=== PATIENT | female | born 1970 | race Caucasian/White ===

== ENCOUNTER → 2020-01-08 10:40 | Outpatient (CLI) | payer OTHER, SELFPAY ==
--- NOTE | ~2020-01-08 | MM_ITS ---
EXAMINATION: MM screening [facility] BI w hope HISTORY: Screening TECHNIQUE: Craniocaudal and mediolateral oblique 3-D tomosynthesis images were obtained and synthetic 2-D images were generated. CAD analysis was submitted and interpreted. COMPARISON: Comparison to multiple prior studies sequentially, with oldest reviewed study dated 08/02. BREAST PARENCHYMAL COMPOSITION: The breasts are heterogeneously dense, which may obscure small masses . FINDINGS: There is no evidence of suspicious mass, calcification, or architectural distortion to sugg est malignancy in either breast. There has been no suspicious interval change. IMPRESSION: 1. No mammographic evidence of malignancy. 2. Recommend routine screening mammography in one year. BI-RADS Category 1: Negative Reviewed, dictated and finalized at location A.
== END ==
PROVIDERS: Visit Provider Obstetrics & Gynecology
DX: Z12.31 Encounter for screening mammogram for malignant neoplasm of breast (principal)
CPT/HCPCS: 77063; 77067

== ENCOUNTER → 2020-10-24 10:12 | Outpatient (CLI) | payer OTHER, SELFPAY ==
--- NOTE | ~2020-10-24 | US_ITS ---
EXAMINATION: US abdomen complete DATE: 10/24/2020 10:55 INDICATION: Epigastric abdominal pain. TECHNIQUE: Multiple grayscale and Doppler ultrasound images of the abdomen were obtained. COMPARISON: None FINDINGS: The visualized portions of the head and body of the pancreas are normal. Abdominal aorta is normal in caliber. Inferior vena cava is normal. The liver is normal without focal lesion. No liver surface nodularity. There is normal flow in main portal vein. The gallbladder is normal in size and c ontains gallstones. No gallbladder wall thickening or sonographic Gonzalez sign. The common duct is nor mal and measures 3 mm. The kidneys are normal in size. There is mild splenomegaly measuring 13.4 cm. IMPRESSION: 1. Cholelithiasis. No evidence of acute cholecystitis. 2. Mild splenomegaly. Reviewed, dictated and finalized at location A.
== END ==
PROVIDERS: PCP Family Medicine; Visit Provider Nurse Practitioner Family
DX: R16.1 Splenomegaly, not elsewhere classified (principal); K80.20 Calculus of gallbladder without cholecystitis without obstruction
CPT/HCPCS: 76700

== ENCOUNTER 2020-11-14 09:35 | Outpatient (CLI) | payer OTHER, SELFPAY ==
--- NOTE | ~2020-11-14 | NM_ITS ---
EXAMINATION: NM hepatobiliary wo pharm DATE: 11/14/2020 13:50 INDICATION: Upper abdominal pain, unspecified. COMPARISON: Ultrasound 10/24/2020 TECHNIQUE: 4.9 mCi Tc-99m mebrofenin (Choletec) was administered intravenously. Scintigraphic images of the abdomen were obtained for one hour. Delayed images were obtained at 4 hours. FINDINGS: There is normal clearance of radiotracer from the blood pool. There is homogeneous tracer u ptake by the liver. Activity progresses to the bowel and gallbladder. IMPRESSION: 1. Normal hepatobiliary scintigraphy. Reviewed, dictated and finalized at location A.
== END 2020-11-14 09:36 | disposition home or self-care (01) ==
LOC: ANHIMG 09:38
PROVIDERS: PCP Family Medicine; Visit Provider Nurse Practitioner Family
DX: R10.10 Upper abdominal pain, unspecified (principal)
CPT/HCPCS: 78226; A9537

== ENCOUNTER → 2021-01-09 10:28 | Outpatient (CLI) | payer OTHER, SELFPAY ==
--- NOTE | ~2021-01-09 | MM_ITS ---
EXAMINATION: MM screening [facility] BI w hope HISTORY: Screening mammogram TECHNIQUE: Craniocaudal and mediolateral oblique 3-D tomosynthesis images were obtained and synthetic 2-D images were generated. CAD analysis was submitted and interpreted. COMPARISON: No prior mammogram is available for comparison at this institution. BREAST PARENCHYMAL COMPOSITION: The breasts are heterogeneously dense, which may obscure small masses . FINDINGS: There is no evidence of suspicious mass, calcification, or architectural distortion to sugg est malignancy in either breast. There has been no suspicious interval change. IMPRESSION: 1. No mammographic evidence of malignancy. 2. Recommend routine screening mammography in one year. BI-RADS Category 1: Negative Reviewed, dictated and finalized at location A.
== END ==
PROVIDERS: Visit Provider Obstetrics & Gynecology
DX: Z12.31 Encounter for screening mammogram for malignant neoplasm of breast (principal)
CPT/HCPCS: 77063; 77067

== ENCOUNTER → 2022-01-12 14:43 | Outpatient (CLI) | payer BC, SELFPAY ==
--- NOTE | ~2022-01-12 | MM_ITS ---
EXAMINATION: MM screening [facility] BI w hope HISTORY: Screening TECHNIQUE: Craniocaudal and mediolateral oblique 3-D tomosynthesis images were obtained and synthetic 2-D images were generated. CAD analysis was submitted and interpreted. COMPARISON: Comparison to multiple prior studies sequentially, with oldest reviewed study dated 10/18. BREAST PARENCHYMAL COMPOSITION: The breasts are heterogeneously dense, which may obscure small masses . FINDINGS: There is no evidence of suspicious mass, calcification, or architectural distortion to sugg est malignancy in either breast. There has been no suspicious interval change. IMPRESSION: 1. No mammographic evidence of malignancy. 2. Recommend routine screening mammography in one year. BI-RADS Category 1: Negative Reviewed, dictated and finalized at location A.
== END ==
PROVIDERS: PCP Family Medicine; Visit Provider Obstetrics & Gynecology
DX: Z12.31 Encounter for screening mammogram for malignant neoplasm of breast (principal)
CPT/HCPCS: 77063; 77067

== ENCOUNTER 2023-04-05 13:55 | Outpatient (CLI) | payer BC, SELFPAY ==
--- NOTE | ~2023-04-05 | MM_ITS ---
EXAMINATION: MM screening [facility] BI w hope HISTORY: Screening mammogram TECHNIQUE: Craniocaudal and mediolateral oblique 3-D tomosynthesis images were obtained and synthetic 2-D images were generated. CAD analysis was submitted and interpreted. COMPARISON: 01/12/2002, 01/09/2021, 01/08/2020 BREAST PARENCHYMAL COMPOSITION: The breasts are heterogeneously dense, which may obscure small masses . FINDINGS: No suspicious mass, calcification, or architectural distortion are identified in either gabbi ast to suggest malignancy. There has been no suspicious interval change. IMPRESSION: 1. No mammographic evidence of malignancy. 2. Recommend routine screening mammography in one year. BI-RADS Category 1: Negative Reviewed, dictated and finalized at location A. 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
== END 2023-04-05 13:56 | disposition home or self-care (01) ==
LOC: ANHIMG 13:57
PROVIDERS: PCP Family Medicine; Visit Provider Obstetrics & Gynecology
DX: Z12.31 Encounter for screening mammogram for malignant neoplasm of breast (principal)
CPT/HCPCS: 77063; 77067

== ENCOUNTER 2024-05-13 14:21 | Outpatient (CLI) | payer OTHER, SELFPAY ==
--- NOTE | ~2024-05-13 | MM_ITS ---
EXAMINATION: MM screening bonnie BI w hope HISTORY: Screening TECHNIQUE: Craniocaudal and mediolateral oblique 3-D tomosynthesis images were obtained and synthetic 2-D images were generated. CAD analysis was submitted and interpreted. COMPARISON: Comparison to multiple prior studies sequentially, with oldest reviewed study dated 12/05. BREAST PARENCHYMAL COMPOSITION: Dense: The breasts are heterogeneously dense, which may obscure small masses FINDINGS: There is no evidence of suspicious mass, calcification, or architectural distortion to sugg est malignancy in either breast. There has been no suspicious interval change. IMPRESSION: 1. No mammographic evidence of malignancy. 2. Recommend routine screening mammography in one year. BI-RADS Category 1: Negative Reviewed, dictated and finalized at location B. HER HEARING IMPAIRED
--- OUTSIDE RECORDS SUMMARY | 2024-05-13 14:24 | XMS_ITS | Clinical Summary ---
Author Organization [employer] [facility] Address [address] Attn: Epic Prelude ADT [place] [address] Care Team Providers Care Exhaust Worker Name Role Phone Unavailable Primary Care Provider Unavailabl e Medications levocetirizine (XYZAL) 5 mg tablet TAKE ONE TABLET BY MOUTH ONCE DAILY 30 Tablet 9 06/12/2021 Active Social History Tobacco Use Types Packs/Day Years Used Date Smoking Tobacco: Never Assessed Comments Unknown Sex and Gender Information Value Date Recorded Sex Assigned at Not on file Legal Sex Female 3:27 PM CDT Gender Identity Not on file Sexual Orientation Not on file Plan of Treatment Health Maintenance Due Date Last Done Comments DTAP/TDAP/TD VACCINES (1 - Tdap) 1990 HEPATITIS B VACCINES (1 of 3 - 19+ 3-dose series) 1990 CERVICAL CANCER SCREENING 2001 BREAST CANCER SCREENING 2011 COLORECTAL SCREENING 02/09/2016 Colorectal Cancer Screening 02/09/2016 FIT-DNA Q 3 years 02/09/2016 FIT/FOBT Q 1 year 02/09/2016 Flex Sig/CT Colonography Q 5 years 02/09/2016 ZOSTER VACCINE (1 of 2) 2021 INFLUENZA VACCINE (#1) 2023 PNEUMOCOCCAL VACCINE 0-64 YEARS Aged Out No longer eligible based on patient's age to complete this topic Insurance RX [employer] Commercial RX [employer] (INTERNAL) [facility]
--- OUTSIDE RECORDS SUMMARY | 2024-05-13 14:24 | XMS_ITS | Referral Summary ---
Author Organization [facility] Address [address] [place] [address] Care Team Providers Care Filer Finish Name Role Phone Dave Goncalves MD Primary Care Provider [phone] Source Comments [facility],non-owned Affiliates and Associated Physician Practices is amultiple site organization consisting of ambulatory clinics and hospital sitesin [place], [place], [place] and [place]. This disclosure is being madepursuant to the Care Everywhere program and may not contain all information available regarding this patient. Last updated 17.[facility] C-Note Allergies Active Allergy Reactions Criticality Noted Date Comments Aspirin Urticaria Medium 09/03/2022 Topical salicylic acid Oral ASA Tolerates with no reaction Amoxicillin Rash Medium 09/03/2022 Medications * Be aware that medications may not be up to date on this document. Alwaysverify current medications with the patient. Medication Sig Dispensed Refills Start Date End Date Status Restasis 0.05 % ophthalmic suspension Instill 1 (one) drop into both eyes 2 times daily 08/29/2022 Active thyroid (Westhroid) 130 MG tablet Take 1 (one) tablet by mouth daily before breakfast Active ESTRADIOL PO Take 2.25 mg by mouth every morning Active progesterone 300 mg ERT 300 mg tablet Take 1 (one) tablet by mouth at bedtime Takes both total of 500mg nightly Active progesterone 100 mg 100 mg tablet Take 2 (two) tablets by mouth at bedtime Active testosterone 0.5% in DERMABASE OINT Apply to affected area once daily Active melatonin 10 MG capsule Take 1 (one) capsule by mouth at bedtime Active spironolactone (Aldactone) 25 MG tablet Take 1 (one) tablet by mouth once daily Active levocetirizine (Xyzal) 5 MG tablet Take 1 (one) tablet by mouth once daily Active loratadine (Claritin) 10 MG tablet Take 1 (one) tablet by mouth once daily Active Multiple Vitamins-Minerals (ONE-A-DAY WOMENS 50+ ADVANTAGE PO) Take 2 tablets by mouth once daily Active Vitamin D3 (Cholecalciferol) 50 MCG (2000 UT) capsule Take 1 (one) capsule by mouth once daily Active Multiple Vitamins-Minerals (Eye Vitamins) CAPS Take 2 (two) capsules by mouth every morning Active bifantis (Align) capsule Take 1 (one) capsule by mouth once daily Active Aczone 7.5 % gel 12/31/2022 Active ibuprofen (Motrin) 600 MG tablet Take 1 (one) tablet by mouth every 6 hours as needed for Pain 60 tablet 02/12/2023 Active docusate sodium (Colace) 100 MG capsule Take 1 (one) capsule by mouth once daily 60 capsule 02/12/2023 Active Active Problems No known active problems Social History Tobacco Use Types Packs/Day Years Used Date Smoking Tobacco: Never Passive Smoke Exposure: Past Smokeless Tobacco: Never Tobacco Cessation:Counseling Given: Not Answered Alcohol Use Standard Drinks/Week Comments Yes 3 (1 standard drink = 0.6 oz pur e alcohol) PHQ-2 Answer Date Recorded Patient Health Questionnaire-2 Score 0 03/25/2023 Sex and Gender Information Value Date Recorded Sex Assigned at Not on file Gender Identity Not on file Sexual Orientation Not on file Last Filed Vital Signs Vital Sign Reading Time Taken Comments Blood Pressure 130/88 04/01/2023 11:07 AM DATA SPECIALIST Pulse 76 02/12/2023 11:11 AM DATA SPECIALIST Temperature 36.3 C (97.3 F) 04/01/2023 11:07 AM DATA SPECIALIST Respiratory Rate 16 02/12/2023 10:23 AM DATA SPECIALIST Oxygen Saturation 100% 02/12/2023 11:11 AM DATA SPECIALIST Inhaled Oxygen Concentration - - Weight 65.1 kg (143 lb 9.6 oz) 04/01/2023 11:07 AM DATA SPECIALIST Height 172.8 cm (5' 8.03 ) 04/01/2023 11:07 AM C Body Mass Index 21.81 04/01/2023 11:07 AM DATA SPECIALIST Plan of Treatment Not on file Medical Devices Implanted Type Area Rn Radiation Device Identifier Shelf Expiration Date Model / Serial / Lot Advantage Blue Implanted:Qty: 1 on 02/12/2023 by Radha George MD at [facility] [id number] 09/15/2025 [id number] / / [id number] Care Teams Filer Finish Relationship Specialty Start Date End Date Dave Goncalves MD [address] [place] [id number] PCP - General Family Medicine 09/03/22
--- OUTSIDE RECORDS SUMMARY | 2024-05-13 14:24 | XMS_ITS | Clinical Summary ---
Author Organization [facility] Address [address] [place] [address] Care Team Providers Care Stick Welder Name Role Phone Dave Goncalves MD Primary Care Provider [phone] Source Comments [facility],non-owned Affiliates and Associated Physician Practices is amultiple site organization consisting of ambulatory clinics and hospital sitesin [place], [place], [place] and [place]. This disclosure is being madepursuant to the Care Everywhere program and may not contain all information available regarding this patient. Last updated 17.[facility] Allergies Active Allergy Reactions Criticality Noted Date [...] daily Active Vitamin D3 (Cholecalciferol) 50 MCG (1999 UT) capsule Take 1 (one) capsule by [...] Active Active Problems No known active problems Family History Medical History Relation Name Comments Cancer - Bladder Father Diabetes - Type 2 Mother Relation Name Status Comments Father Mother Social History Tobacco Use Types Packs/Day Years [...] Comments Blood Pressure 130/88 04/01/2023 11:07 AM SYSTEM SAFETY ENGINEER Pulse 76 02/12/2023 11:11 AM SYSTEM SAFETY ENGINEER Temperature 36.3 C (97.3 F) 04/01/2023 11:07 AM SYSTEM SAFETY ENGINEER Respiratory Rate 16 02/12/2023 10:23 AM SYSTEM SAFETY ENGINEER Oxygen Saturation 100% 02/12/2023 11:11 AM SYSTEM SAFETY ENGINEER Inhaled Oxygen Concentration - - Weight 65.1 kg (143 lb 9.6 oz) 04/01/2023 11:07 AM SYSTEM SAFETY ENGINEER Height 172.8 cm (5' 8.03 ) 04/01/2023 11:[address] Body Mass Index 21.81 04/01/2023 11:07 AM SYSTEM SAFETY ENGINEER Plan of Treatment Health Maintenance Due Date Last Done Comments COLOGUARD (AGES 45-75) - COLON CA SCREENING 1971 COLON MONITORING 1971 COLONOSCOPY - COLON CA SCREENING 1971 CT COLONOGRAPHY - COLON CA SCREENING 1971 Colorectal Cancer Screening 1971 FIT - COLON CA SCREENING 1971 FLEX SIG - COLON CA SCREENING 1971 LIPID TESTING 1971 MAMMOGRAM 1971 HIV SCREENING 1986 HEPATITIS C SCREENING 02/03/1989 DTAP/TDAP/TD VACCINES (1 - Tdap) 1990 HEPATITIS B VACCINE (1 of 3 - 19+ 3-dose series) 1990 PNEUMOCOCCAL VACCINE 50+ (1 of 1 - PCV) 2021 ZOSTER VACCINE (1 of 2) 2021 COVID-19 VACCINE (4 - season) 2023 02/10/2021, 06/11/2020, 05/14/2020 INFLUENZA VACCINE (#1) 2023 9, 01/18/2018, 01/01/2017, Additional history exists DEPRESSION SCREENING 03/25/2024 04/01/2023 HIB VACCINE Aged Out No longer eligi ble based on patient's age to complete this topic HPV VACCINE Aged Out No longer eligi ble based on patient's age to complete this topic MENINGOCOCCAL (Group B) VACCINE Aged Out No longer eligible based on patient's age to complete this topic MENINGOCOCCAL VACCINE Aged Out No lorena filipe eligible based on patient's age to complete this topic PNEUMOCOCCAL VACCINE Aged Out No long er eligible based on patient's age to complete this topic Medical Devices Implanted Type Area Seat Coverer Device Identifier Shelf Expiration Date Model / Serial / Lot Advantage Blue Implanted:Qty: 1 on 02/12/2023 by Radha George MD at [facility] [email or web address] [facility] [id number] 09/15/2025 [id number] / / [id number] Care Teams Stick Welder Relationship Specialty Start Date End Date Dave Goncalves MD [address] [place] [phone] PCP - General Family Medicine 09/03/22
--- OUTSIDE RECORDS SUMMARY | 2024-05-13 14:24 | XMS_ITS | Patient Health Summary ---
Author Organization [facility] Address [address] [place] [address] Care Team Providers Care Ribbon Lap Machine Tender Name Role Phone Dave Goncalves MD Primary Care Provider [phone] [facility],non-owned Affiliates and Associated Physician Practices is amultiple site organization consisting of ambulatory clinics and hospital sitesin [place], [place], [place] and [place]. This disclosure is being madepursuant to the Care Everywhere program and may not contain all information available regarding this patient. Last updated 17.[facility] Allergies * Aspirin(Urticaria) -Medium Criticality * Amoxicillin(Rash) -Medium Criticality Medications * Be aware that medications may not be up to date on this document. Alwaysverify current medications with the patient. * Restasis 0.05 % ophthalmic suspension(Started 08/29/2022) Instill 1 (one) drop into both eyes 2 times daily * thyroid (Westhroid) 130 MG tablet Take 1 (one) tablet by mouth daily before breakfast * ESTRADIOL PO Take 2.25 mg by mouth every morning * progesterone 300 mg ERT 300 mg tablet Take 1 (one) tablet by mouth at bedtime Takes both total of 500mg nightly * progesterone 100 mg 100 mg tablet Take 2 (two) tablets by mouth at bedtime * testosterone 0.5% in DERMABASE OINT Apply to affected area once daily * melatonin 10 MG capsule Take 1 (one) capsule by mouth at bedtime * spironolactone (Aldactone) 25 MG tablet Take 1 (one) tablet by mouth once daily * levocetirizine (Xyzal) 5 MG tablet Take 1 (one) tablet by mouth once daily * loratadine (Claritin) 10 MG tablet Take 1 (one) tablet by mouth once daily * Multiple Vitamins-Minerals (ONE-A-DAY WOMENS 50+ ADVANTAGE PO) Take 2 tablets by mouth once daily * Vitamin D3 (Cholecalciferol) 50 MCG (2000 UT) capsule Take 1 (one) capsule by mouth once daily * Multiple Vitamins-Minerals (Eye Vitamins) CAPS Take 2 (two) capsules by mouth every morning * bifantis (Align) capsule Take 1 (one) capsule by mouth once daily * Aczone 7.5 % gel(Started 12/31/2022) * ibuprofen (Motrin) 600 MG tablet(Started 02/12/2023) Take 1 (one) tablet by mouth every 6 hours as needed for Pain * docusate sodium (Colace) 100 MG capsule(Started 02/12/2023) Take 1 (one) capsule by mouth once daily Active Problems No known active problems Social [...] Comments Blood Pressure 130/88 04/01/2023 11:07 AM DERRICK WORKER Pulse 76 02/12/2023 11:11 AM DERRICK WORKER Temperature 36.3 C (97.3 F) 04/01/2023 11:07 AM DERRICK WORKER Respiratory Rate 16 02/12/2023 10:23 AM DERRICK WORKER Oxygen Saturation 100% 02/12/2023 11:11 AM DERRICK WORKER Inhaled Oxygen Concentration - - Weight 65.1 kg (143 lb 9.6 oz) 04/01/2023 11:07 AM DERRICK WORKER Height 172.8 cm (5' 8.03 ) 04/01/2023 11:07 AM C Body Mass Index 21.81 04/01/2023 11:07 AM DERRICK WORKER Medical Devices Implanted Type Area Molding Line Operator Device Identifier Shelf Expiration Date Model / Serial / Lot Advantage Blue Implanted:Qty: 1 on 02/12/2023 by Radha George MD at [facility] [employer] [facility] [id number] 09/15/2025 [id number] / / [id number] Procedures * CARDIAC RHYTHM STRIP ORDER(Performed 02/18/2023) * APHERESIS/TRANSFUSION ORDER(Performed 02/18/2023) * LARYNGEAL MASK AIRWAY(Performed 02/12/2023) * BLOOD TYPE VERIFICATION(Performed 02/12/2023) * NE SLING OPER STRES INCONTINENCE(Performed 02/12/2023) Performed for Diagnosis unknown * CULTURE URINE(Performed 01/29/2023) Performed for Preop testing * TYPE + SCREEN PANEL(Performed 01/29/2023) Performed for Preop testing * BASIC METABOLIC PANEL (CALCIUM TOTAL)(Performed 01/29/2023) Performed for Preop testing * CBC W AUTO DIFFERENTIAL(Performed 01/29/2023) Performed for Preop testing * NE CYSTOMETROGRAM W/FINE JEWELRY SALES ASSOCIATE&UP(Performed 10/04/2022) Performed for Mixed stress and urge urinary incontinence * NE INTRAABDOMINAL PRESSURE TEST(Performed 10/04/2022) Performed for Mixed stress and urge urinary incontinence * NE ANAL/URINARY MUSCLE STUDY(Performed 10/04/2022) Performed for Mixed stress and urge urinary incontinence * NE ELECTRO-UROFLOWMETRY, FIRST(Performed 10/04/2022) Performed for Mixed stress and urge urinary incontinence * URINALYSIS AUTO - POINT OF CARE (AMB) [facility](Performed 10/04/2022) Performed for Mixed stress and urge urinary incontinence * URINALYSIS AUTO - POINT OF CARE (AMB) [facility](Performed 09/03/2022) Performed for Mixed stress and urge urinary incontinence * NE INSERT NON-INDWELLING BLADDER(Performed 09/03/2022) Performed for Mixed stress and urge urinary incontinence Results * CARDIAC RHYTHM STRIP ORDER (02/18/2023 9:20 PM DERRICK WORKER) Narrative 02/18/2023 9:20 PM DERRICK WORKER Ordered by an unspecified provider. Scanned Document CARDIAC SERVICES ORD ERABLES * APHERESIS/TRANSFUSION ORDER (02/18/2023 9:20 PM DERRICK WORKER) Narrative 02/18/2023 9:20 PM DERRICK WORKER Ordered by an unspecified provider. Scanned Document NURSING - VITAL SIGN S AND ASSESSMENT * LARYNGEAL MASK AIRWAY (02/12/2023 8:02 AM DERRICK WORKER) Narrative Fariba Palmer APRN-CRNA - 02/12/2023 8:02 AM DERRICK WORKER Fariba Palmer APRN-CRNA 02/12/2023 8:03 AM LMA Placement Procedure/LDA Note: Patient Location: OR. LMA Insertion Date/Time: 02/12/2023 7:36 AM Procedure: LMA. Pretreatment: 100% O2 Patient position: supine. Type: LMA Size: 4 Placement verified by: direct visualization, bilateral breath sounds and chest auscultation Dentition unchanged? Yes Procedure Start Time: 02/12/2023 7:36 AM. Staff Section Anesthesia Provider: Fariba Palmer APRN-CRNA, Performed the procedure Gianluca Dunn DO GENERAL ANESTHESIA O RDERABLES * BLOOD TYPE VERIFICATION (02/12/2023 6:37 AM DERRICK WORKER) ABO Rh A NEG 02/12/2023 7:0 3 AM DERRICK WORKER [facility] Blood Bank BLOOD SPECIMEN / Unknown Venipuncture / Unknown 02/12/2023 6:37 AM DERRICK WORKER 02/12/2023 6:43 AM DERRICK WORKER Gianluca Dunn DO LAB - BLOOD BANK ORD ERABLES [facility] [address] [place], [place] [id number] [place] [address] * CULTURE URINE (01/29/2023 7:15 AM DERRICK WORKER) Culture Urine <10,000 CFU/mL urogenital lita TERRA 01/31/2023 8:02 AM DERRICK WORKER [facility] Urine URINE SPECIMEN COLLECTION, CATHETERIZED / Unknown Collection / Unknown 01/29/2023 7:15 AM DERRICK WORKER 01/29/2023 7:30 AM DERRICK WORKER Radha George MD LAB - MICROBIOLOGY ORDERABLES [facility] [address] [phone] * TYPE + SCREEN PANEL (01/29/2023 7:14 AM DERRICK WORKER) ABO Rh A NEG 01/29/2023 8:22 AM [facility] Comment:No history; collect retype. Antibody Screen NEG 8:22 AM [facility] Blood Bank BLOOD SPECIMEN / Unknown Venipuncture / Unknown 01/29/2023 7:14 AM DERRICK WORKER 01/29/2023 7:30 AM DERRICK WORKER Radah George MD LAB - BLOOD BANK OR DERABLES [facility] [address] [phone] * (ABNORMAL) CBC W AUTO DIFFERENTIAL (01/29/2023 7:14 AM DERRICK WORKER) WBC 3.7(L) 4.4 - 10.7 x10E9/L 01/29/2023 7:35 AM [facility] WBC Corrected 01/29/2023 7:35 AM [facility] RBC 4.77 3.80 - 5.20 x10E12/L 01/29/2023 7:35 AM [facility] Hemoglobin 14.1 12.0 - 15.6 gm/dL 01/29/2023 7:35 AM [facility] Hematocrit 43.1 35.9 - 45.5 % 01/29/2023 7:35 AM [facility] MCV 90.4 80.7 - 98.3 fl 01/29/2023 7:35 AM [facility] MCH 29.6 26.7 - 34.0 pg 01/29/2023 7:35 AM [facility] MCHC 32.7 30.8 - 35.9 gm/dL 01/29/2023 7:35 AM [facility] Platelet Count 205 153 - 416 x10E9/L 01/29/2023 7:35 AM [facility] RDW-CV 12.6 12.1 - 14.9 % 01/29/2023 7:35 AM [facility] MPV 9.4 9.4 - 12.9 fl 01/29/2023 7:35 AM [facility] Neutrophils % 53.7 44.0 - 73.0 % 01/29/2023 7:35 AM [facility] Lymphocytes % 30.5 20.0 - 43.0 % 01/29/2023 7:35 AM [facility] Monocytes % 9.6 5.0 - 13.0 % 01/29/2023 7:35 AM [facility] Eosinophils % 5.1 0.0 - 6.0 % 01/29/2023 7:35 AM [facility] Basophils % 0.8 0.0 - 2.0 % 01/29/2023 7:35 AM [facility] Immature Granulocytes 0.3 0 - 1 % 01/29/2023 7:35 AM [facility] Neutrophil Absolute 2.01 2.01 - 7.14 x10E9/L 01/29/2023 7:35 AM [facility] Lymphocytes Absolute 1.14 1.07 - 3.94 x10E9/L 01/29/2023 7:35 AM [facility] Monocytes Absolute 0.36 0.26 - 1.07 x10E9/L 01/29/2023 7:35 AM [facility] Eosinophils Absolute 0.19 0 - 0.47 x10E9/L 01/29/2023 7:35 AM [facility] Basophils Absolute 0.03 0 - 0.08 x10E9/L 01/29/2023 7:35 AM [facility] Immature Granulocytes Absolute 0.01 0.00 - 0.06 x10E9/L 01/29/2023 7:35 AM [facility] nRBC Auto 0 /100 WBC 01/29/2023 7:35 AM [facility] Blood BLOOD SPECIMEN / Unknown Venipuncture / Unknown 01/29/2023 7:14 AM DERRICK WORKER 01/29/2023 7:30 AM DERRICK WORKER Radha George MD LAB - HEMATOLOGY OR DERABLES Performing Organization Address City/State/[facility] Co de Phone Number [facility] [address] [place], [place] [phone] * (ABNORMAL) BASIC METABOLIC PANEL (CALCIUM TOTAL) (01/29/2023 7:14 AM [facility]) [facility] Glucose 98 70 - 105 mg/dL 01/29/2023 7:54 AM [facility] Sodium 138 136 - 145 mmol/L 01/29/2023 7:54 AM [facility] Potassium 4.3 3.5 - 5.1 mmol/L 01/29/2023 7:54 AM [facility] Chloride 109(H) 98 - 107 mmol/L 01/29/2023 7:54 AM [facility] CO2 24 22 - 29 mmol/L 01/29/2023 7:54 AM [facility] Calcium 9.2 8.4 - 10.4 mg/dL 01/29/2023 7:54 AM [facility] Anion Gap 5(L) 6 - 16 mmol/L 01/29/2023 7:54 AM [facility] BUN 15 7 - 26 mg/dL 01/29/2023 7:54 AM [facility] Creatinine 0.88 0.57 - 1.11 mg/dL 01/29/2023 7:54 AM [facility] eGFR by CKD-EPI 80(L) >=90 mL/min/1.7 3 m2 01/29/2023 7:54 AM [facility] Blood BLOOD SPECIMEN / Unknown Venipuncture / Unknown 01/29/2023 7:14 AM DERRICK WORKER 01/29/2023 7:30 AM [facility] Radha George MD LAB - CHEMISTRY ORD ERABLES Performing Organization Address City/State/[facility] Co de Phone Number [facility] [address] [place], [place] [phone] * NE ELECTRO-UROFLOWMETRY, FIRST, NE ANAL/URINARY MUSCLE STUDY, NE INTRAABDOMINAL PRESSURE TEST, NE CYSTOMETROGRAM W/FINE JEWELRY SALES ASSOCIATE&UP (10/04/2022 9:05 AM CDT) Narrative Radha George MD - 10/04/2022 9:05 AM CDT Radha George MD 10/04/2022 9:39 AM Urogynecology and Pelvic Reconstructive Surgery Procedure Note: Urodynamic Evaluation 10/04/2022 Subjective Ankita Garcia is a 52 year old female who presents for a urodynamic evaluation. Indication(s) for study: mixed urinary incontinence. Laboratory Results: Catheterized urine dipstick shows: negative Urodynamic Data: Urodynamic studies are performed in a seated position unless otherwise noted. Complex uroflowmetry was performed to noninvasively study the urine flow over time. The patient was instructed to void on a commode chair. A post void residual urine measurement was performed via straight catheterization immediately after uroflowmetry. Using calibrated equipment, the maximum urinary flow rate was 10 cc per second with a voiding time of 9 seconds and a voided volume of 53 cc. The residual urine was 45 cc. Complex Uroflowmetry Impressions: Low voided volume, normal PVR Complex cystometry was performed to assess bladder sensation and storage. A dual-channel 7-Fr catheter was passed via the urethra into the bladder. A second 7-Fr catheter was placed in the vagina or rectum to measure intra-abdominal pressure. Both catheters were zeroed to atmospheric pressure and the bladder was filled with room-temperature saline in retrograde fashion using a pump. Bladder sensation and urgency were assessed while filling. Bladder pressure was continuously observed during the study for evidence of involuntary detrusor contractions. At maximum capacity, provocative measures were performed to elicit involuntary detrusor contractions. These measures include: cough, heel-bounce, listening to running water, position change, and/or guided imagery. The bladder was filled with room temperature water at a rate of 80 cc per minute. The patient tolerated this and she was found to have: First sensation (S1) at 116 cc. Sensation of fullness at 258 cc. Strong desire at 312 cc. Maximal cystometric capacity of 323 cc. She does have normal bladder compliance. She does not have loss of urine with a rise in detrusor pressure. Stress testing was performed during cough and Valsalva to observe for urine loss from the urethra. This is performed with any significant prolapse reduced (barrier reduction testing). Cough leak point pressure (CLPP): CLPP: 151 cm H20 at 301 cc Valsalva leak point pressure (VLPP): Negative VLPP: 69 cm H20 at 301 cc Complex Cystometry Impressions: Bladder Sensation: normal Bladder Compliance: normal Detrusor Function: no detrusor overactivity Stress Testing Impressions: urodynamic stress incontinence Urethral pressure profilometry was performed to assess urethral function. The transurethral catheter is slowly withdrawn through the urethra in order to assess urethral closure pressures. Once this portion of the study is completed, the transurethral catheter is re-inserted into the bladder for the remainder of the urodynamic evaluation. Urethral pressure profilometry (UPP): Maximal urethral closure pressure (MUCP): 80 cm H20 Urethral Pressure Profile Impression: MUCP: Normal (MUCP > 40 cm H20) A micturition, or pressure-flow study, was performed in order to further evaluate voiding function. In this study the transurethral and vaginal (or rectal) catheters are left in place and the patient urinates around these catheters. Bladder pressures are recorded while also recording urine flow over time. At the end of the study, all catheters are removed and a final post void residual is obtained. Post procedure instructions are reviewed. The patient was instructed to void. She voided via detrusor contraction. Her maximal detrusor during void (Pdet max) was 15 cm water. Her void was phasic. Her post void residual by catheterization was 10 cc. Pressure Flow Study Impressions: Detrusor function: normal Perineal surface electromyography (EMG) was performed during complex cystometry and micturition, to assess pelvic floor muscle activity during filling and voiding phases of urodynamic studies. Urethral function: elevated pelvic floor EMG activity during the void, normal PVR Assessment: Ankita Garcia is a 52 year old female with: ICD-10-CM 1. Mixed stress and urge urinary incontinence N39.46 URINALYSIS AUTO - POINT OF CARE (AMB) [facility] PROC URODYNAMICS 2. Stress incontinence in female N39.3 There was not evidence of DO or DOI. The patient did demonstrate stress incontinence with CLPP of 151 cm H20 at 301 cc without barrier reduction. 1. Uroflow Impression: Low voided volume and normal post void residual 2. Cystometrogram Summary: normal sensation, normal compliance, no detrusor overactivity 3. Stress Testing Impressions: urodynamic stress incontinence 4. Urethral Pressure Profile Summary: normal 5. Pressure Flow Summary: elevated pelvic floor EMG activity during the void, normal PVR Plan: The patient will follow up with me to discuss the results and determine a plan, see separate note. Radha George MD Radha George MD PROCEDURE/MINOR CATALINO GICAL ORDERABLES * URINALYSIS AUTO - POINT OF CARE (AMB) [facility] (10/04/2022 8:42 AM CDT) Only the most recent of2 resultswithin the time period is included. Glucose UA neg [facility] [address] Bilirubin UA POCT neg [facility] [address] Ketones UA POCT neg [facility] [address] Specific [place] UA 1.[address] [facility] [address] Blood Urine POCT neg [facility] [address] pH UA 6.0 [facility] [address] Protein UA neg [facility] [address] Urobilinogen UA neg [facility] [address] Nitrite UA neg [facility] [address] WBC UA neg [facility] [address] Urine URINE / Unknown 10/04/2022 8 :42 AM CDT Radha George MD LAB - POINT OF CARE ORDERABLES [facility] [address] [place] [address], [facility] [phone] * NE INSERT NON-INDWELLING BLADDER (09/03/2022 9:55 AM CDT) Narrative Radha George MD - 09/03/2022 9:55 AM CDT Radha George MD 09/03/2022 10:47 AM Procedure note: Straight catheterization was performed after swabbing the urethra with betadine. A 14 Fr urethral catheter was inserted without difficulty and the bladder was drained for 3 mL. The patient tolerated the procedure well. Radha George MD PROCEDURE/MINOR CATALINO GICAL ORDERABLES Care Teams Ribbon Lap Machine Tender Relationship Specialty Start Date End Date Dave Goncalves MD [address] [place] [address] PCP - General Family Medicine 09/03/22
== END 2024-05-13 14:22 | disposition home or self-care (01) ==
LOC: ANHIMG 14:22
PROVIDERS: PCP Family Medicine; Visit Provider Obstetrics & Gynecology
DX: Z12.31 Encounter for screening mammogram for malignant neoplasm of breast (principal)
CPT/HCPCS: 77063; 77067

== ENCOUNTER 2024-05-19 11:27 | Emergency (ER) | payer OTHER, SELFPAY ==
[2024-05-19 11:37] VITALS: BP 111/77; PULSE 88; RESP 16; TEMP 36.1; O2SAT 100
--- NOTE | 2024-05-19 12:32 | ED_ITS ---
HPI - URI/Sore Throat General Chief Complaint: Upper Respiratory Infection Stated Complaint: Cough/Sore Throat Source: patient Mode of arrival: ambulatory Limitations: no limitations History of Present Illness HPI Narrative: 54 y/o female presented for c/o cough, sore throat, headache and fatigue. Onset 3 days. Endorses feeling 'winded' at times with exertion. denies wheezing, n/v/d/f/c. Taking cough medicine for symptoms. Related Data Home Medications ?Medication ?Instructions ?Recorded ?Confirmed ?Last Taken ?Type Saccharomyces boulardii 250 mg 250 mg PO BID 10/12/20 02/26/24 Unknown History capsule (Daily Probiotic (S. boulardii)) cyclosporine 0.05 % eye drops in a 1 drp EACH EYE Q12H 10/12/20 02/26/24 Unknown History dropperette (Restasis) levocetirizine 5 mg tablet (Xyzal) 5 mg PO DAILY 10/12/20 02/26/24 Unknown History eye promise .Route 11/16/21 02/26/24 Unknown History loratadine 10 mg tablet (Claritin) 10 mg PO DAILY 11/16/21 02/26/24 Unknown History multivitamin (One-A-Day Essential 1 tablet PO DAILY 11/16/21 02/26/24 Unknown History tablet) melatonin 5 mg capsule 10 mg PO QHS 08/29/22 02/26/24 Unknown History spironolactone 50 mg tablet 50 mg PO DAILY 01/23/23 02/26/24 Unknown History testosterone 1 % (50 mg/5 gram) 1 packet transdermal DAILY 01/23/23 02/26/24 Unknown History transdermal gel packet testosterone 1.62 % (40.5 mg/2.5 1 packet transdermal DAILY 01/23/23 02/26/24 Unknown History gram) transdermal gel packet estradiol 1 mg tablet 3 mg PO DAILY 02/26/24 02/26/24 Unknown History progesterone micronized 100 mg 500 mg PO QAM 02/26/24 02/26/24 Unknown History capsule thyroid (pork) 130 mg tablet 130 mg PO DAILY 02/26/24 02/26/24 Unknown History Allergies Allergy/AdvReac Type Severity Reaction Status Date / Time amoxicillin AdvReac Intermediate Rash Verified 05/19/24 11:48 Penicillins AdvReac Intermediate Rash Verified 05/19/24 11:48 salicylic acid AdvReac Intermediate Hives Verified 05/19/24 11:48 Review of Systems Review of Systems: per HPI All systems reviewed & are unremarkable except as noted in HPI and below PMFSH Past Medical History Medical History (Updated 05/19/24 @ 12:39 by Madisyn Ziegler APRN) Labral tear of right hip joint Trochanteric bursitis, right hip Arthritis of right hip History of vaginal delivery Acid reflux BMI 23.0-23.9, adult Acute sinusitis, unspecified Chronic pain of left knee Chronic pain of right knee Hip pain, right Other chronic pain Patellofemoral stress syndrome of both knees History of branchial cleft cyst Insomnia Acne Seasonal allergies Hypothyroidism (acquired) Surgical History Surgical History (Updated 02/26/24 @ 13:01 by Shaila Ramos [facility]) H/O midurethral sling procedure H/O vaginal hysterectomy (~10/28/14) TVH with BS. Dr Rincon (for fibroids/menorrhagia) Path benign f ibroids/adenomyosis H/O removal of cyst History of section History of tonsillectomy Family History Family History Mother Family history of diabetes mellitus in first degree relative Hypertension Family history of elevated blood lipids Diabetes mellitus Family history of hypercholesterolemia Father Family history of malignant neoplasm of urinary bladder Patient's father is Sibling Hypertension Other Family history of arthritis Family history of malignant neoplasm Social History Social History Smoking status: Never smoker Second hand tobacco smoke exposure: No Alcohol intake: current Substance use: never Substance use type: does not use Lack of Transportation: No Lack of Food: Never True Current Housing: I Have Housing Concerned About Future Housing: No Difficulty Paying Gas/Electric Bills: No Difficulty Paying for Meds: No Currently Unemployed: No Difficulty w/ Childcare or Family Care: No Living arrangements: with family Occupation/Education: occupation 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 Please see nursing chart for further information. There is no relevant family history pertinent to the presenting complaint Exam Narrative: GENERAL: Well-appearing, in no acute distress. EYES: EOMI. No redness or drainage. Conjunctivae normal. ENT: Mucous membranes pink and moist. No rhinorrhea. TMs normal bilaterally. Throat normal. Uvula midline. NECK: Normal AROM. Supple. CHEST: No respiratory distress. Lungs clear to all villagomez. HEART: Regular rate and rhythm. No murmur appreciated. ABDOMEN: Soft, nontender, nondistended, normal active bowel sounds. SKIN: Warm, dry, no rash. Capillary refill normal. Normal skin turgor. NEURO: Alert and oriented x3. Gait steady. PSYCH: Normal affect. Course Course Emergency Course: Patient is aware of diagnosis, understands and agrees to treatment plan. Anticipatory guidance given. Patient agrees to follow-up as directed and is aware of reasons to seek care at the emergency department. Portions of this record may have been created with voice recognition software Level of Care: Express Care Visit Vital Signs Vital signs: Vital Signs Temperature 97 F L 05/19/24 11:37 Pulse Rate 88 05/19/24 11:37 Respiratory Rate 16 05/19/24 11:37 Blood Pressure 111/77 05/19/24 11:37 Pulse Oximetry 100 05/19/24 11:37 Temperature 97 F L 05/19/24 11:37 Pulse Rate 88 05/19/24 11:37 Respiratory Rate 16 05/19/24 11:37 Blood Pressure 111/77 05/19/24 11:37 Pulse Oximetry 100 05/19/24 11:37 MDM - URI/Sore Throat MDM Narrative Medical decision making narrative: Negative flu, COVID, and strep. Discussed physical exam findings. Advised supportive measures and signs/symptoms to go to the ER. Pt is appropriate for outpt treatment and f/u. Differential Diagnosis Differential diagnosis: Likely upper respiratory infection, otitis media, sinusitis, viral infection, bronchitis and pharyngitis Discharge Plan Discharge Clinical Impression: Bronchitis Patient Disposition: Home, Self-Care Condition: Stable Instructions: Antibiotic Form, Acute Bronchitis (ED) Additional Instructions: Flu and COVID negative Rapid strep swab was negative today You will be notified in a few days if the culture comes back positive for strep, and appropriate antibiotics will be called in at that time. if symptoms are due to a viral illness, it is not treated with antibiotics. Viral symptoms can be present for up to 10-14 days. Recommend Flonase spray and Zyrtec for sinus congestion Cough syrup may cause drowsiness; avoid driving or take it at night time. Tylenol every 8 hours as needed for pain/fever Soft foods, cool liquids, warm tea. Gargle with warm saltwater twice a day. Chloraseptic spray and throat lozenges. Rest and stay hydrated. --Follow up with your PCP --Go to the ER immediately if you cannot swallow your saliva, trouble breathing/wheezing, throat swelling, pain is persistent and severe Patient Language: Bahraini Prescriptions: New benzonatate 200 mg capsule 200 mg PO TID PRN (Reason: cough) Qty: 20 0RF prednisone 20 mg tablet 40 mg PO DAILY 5 Days Qty: 10 0RF No Action loratadine [Claritin] 10 mg tablet 10 mg PO DAILY multivitamin [One-A-Day Essential] Tablet 1 tablet PO DAILY eye promise .Route Rx Instructions: daily melatonin 5 mg capsule 10 mg PO QHS estradiol 1 mg tablet 3 mg PO DAILY progesterone micronized 100 mg capsule 500 mg PO QAM levocetirizine [Xyzal] 5 mg tablet 5 mg PO DAILY Restasis 0.05 % dropperette 1 drp EACH EYE Q12H Saccharomyces boulardii [Daily Probiotic (S. boulardii)] 250 mg capsule 250 mg PO BID spironolactone 50 mg tablet 50 mg PO DAILY testosterone 1.62 % (40.5 mg/2.5 gram) gel in packet 1 packet transdermal DAILY Rx Instructions: apply 20.25 mg /0.5 packets to max area of EACH upper arm and shoulder testosterone 1 % (50 mg/5 gram) gel in packet 1 packet transdermal DAILY thyroid (pork) 130 mg tablet 130 mg PO DAILY Follow-up/Referrals: PHYSICIAN,SKATE MAKER [Primary Care Provider] -
[2024-05-19 12:43] LABS: EDCOVIDSCREEN Negative (Negative)
[2024-05-19 12:44] LABS: EDINFLUASCREEN Negative (Negative); EDINFLUBSCREEN Negative (Negative); EDSTREPNEGPOS1 Negative (Negative)
== END 2024-05-19 13:10 | disposition home or self-care (01) ==
PROVIDERS: Emergency Provider Nurse Practitioner Family
DX: J40 Bronchitis, not specified as acute or chronic (principal); Z20.822 Contact with and (suspected) exposure to COVID-19; K21.9 Gastro-esophageal reflux disease without esophagitis; E03.9 Hypothyroidism, unspecified; M16.11 Unilateral primary osteoarthritis, right hip
CPT/HCPCS: 87081; 87426; 87804; 87880; 99213; G0463